=== PATIENT | female | born 1990 | race African-American/Black ===

== ENCOUNTER 2021-07-15 08:02 | Emergency (ER) | payer OTHER ==
[~2021-07-15] VITALS: Ht 170.2 cm; Wt 67.1 kg
[2021-07-15 08:06] VITALS: BP 178/114
[2021-07-15] MEDS ORDERED: NORCO 10-325 T1 EACH PO (08:39)
[2021-07-15] MEDS ORDERED: PENICILLIN VK500 M1 PO (08:39)
== END 2021-07-15 08:50 | disposition home or self-care (01) ==
LOC: ER 08:02
DX: K08.89 Other specified disorders of teeth and supporting structures (principal)